=== PATIENT | female | born 1955 | race Caucasian/White ===

== ENCOUNTER 2018-06-08 07:10 | Emergency (ER) | payer MEDICARE, MEDICAID ==
[~2018-06-08] VITALS: Ht 160 cm; Wt 66.4 kg
[2018-06-08 07:38] LABS: BASOPHILS % (AUTO) 0.4 % (0-1); EOSINOPHILS # (AUTO) 0.1 X10'3 (0-0.9); EOSINOPHILS % (AUTO) 0.6 % (0-6); HEMATOCRIT 38.6 % (35.0-45.0); HEMOGLOBIN 12.9 g/dl (12.0-16.0); LYMPHOCYTES # (AUTO) 1.4 X10'3 (1.1-4.8); LYMPHOCYTES % (AUTO) 15.4 % (21-51); MEAN CORPUSCULAR HEMOGLOBIN 29.9 PG (27.0-31.0); MEAN CORPUSCULAR HGB CONC 33.3 g/dL (33.0-36.5); MEAN CORPUSCULAR VOLUME 89.7 FL (78-98); MEAN PLATELET VOLUME 8.1 FL (7.4-10.4); MONOCYTES # (AUTO) 0.7 X10'3 (0-0.9); MONOCYTES % (AUTO) 8.2 % (2-12); NEUTROPHILS # (AUTO) 6.6 X10'3 (1.8-7.7); NEUTROPHILS % (AUTO) 75.4 % (42-75); PLATELET COUNT 212 X10'3 (140-440); RED CELL DISTRIBUTION WIDTH 13.2 % (11.5-14.5); WHITE BLOOD COUNT 8.8 X10'3 (4.5-11.0)
[2018-06-08] MEDS ORDERED: normal saline 1000ML IV soln IVB ONE (07:40)
[2018-06-08] MEDS ORDERED: ondansetron/PF 4mg/2ml inj IV ONE (07:40)
[2018-06-08] MEDS: morphine 4 MG/ML inj SYRINge IV PRN ×3 (07:53→10:38)
[2018-06-08 07:55] LABS: CLARITY,URINE CLEAR (Clear); COLOR,URINE YELLOW (Yellow); GLUCOSE, URINE NEGATIVE (Neg); KETONES,URINE NEGATIVE (Neg); LEUKOCYTE ESTERASE ,URINE SMALL (Neg); NITRITES, URINE NEGATIVE (Neg); OCCULT BLOOD,URINE SMALL (Neg); PROTEIN,URINE NEGATIVE (Neg); UROBILINOGEN,URINE 0.2 E.U/dL (0.2-1.0)
[2018-06-08] MEDS ORDERED: ketorolac trometh. 30mg/ml inj. IV ONE (07:55)
[2018-06-08 08:00] LABS: ALANINE AMINOTRANSFERASE 21 U/L (12-78); ALBUMIN 3.3 G/DL (3.4-5.0); ALBUMIN/GLOBULIN RATIO 0.8 (1.1-1.5); ALKALINE PHOSPHATASE 75 IU/L (46-116); ANION GAP 6 (8-16); ASPARTATE AMINO TRANSFERASE 12 U/L (10-37); BILIRUBIN,TOTAL 0.5 MG/DL (0.1-1.0); BLOOD UREA NITROGEN 10 MG/DL (7-18); BUN/CREATININE RATIO 14.7 (6.6-38.0); CALCIUM 9.3 MG/DL (8.5-10.1); CHLORIDE 104 MMOL/L (99-107); CREATININE 0.68 MG/DL (0.40-0.90); GLUCOSE 95 MG/DL (70-104); LIPASE 106 U/L (73-393); POTASSIUM 3.1 MMOL/L (3.5-5.1); SODIUM 144 MMOL/L (135-145); TOTAL CARBON DIOXIDE 33.9 MMOL/L (24-32); TOTAL PROTEIN 7.2 G/DL (6.4-8.2); eGFR 88 ML/MIN
[2018-06-08 08:04] LABS: URINE HCG NEGATIVE (NEG)
[2018-06-08 08:05] LABS: UA COLLECTION TYPE CLN CATCH MIDSTREAM
[2018-06-08 08:06] LABS: BACTERIA,URINE FEW /HPF (Neg); MUCUS STRANDS FEW /LPF (Neg); RBC,URINE 0-2 /HPF (0-2); SQUAMOUS EPITHELIAL CELL,UR MODERATE /LPF (FEW)
[2018-06-08] MEDS ORDERED: morphine 4 MG/ML inj SYRINge IV ONE (09:20)
--- NOTE | 2018-06-08 10:04 | NUR ---
ultrasound in progress.
--- NOTE | 2018-06-08 10:25 | NUR ---
Spoke with Dr. Russ about potassium replacement for patient, he stated that he was awaiting US results before giving PO replacement
[2018-06-08] MEDS ORDERED: CIPR-230 PO (10:56)
[2018-06-08] MEDS ORDERED: TRAM50TA2 PO (10:56)
[2018-06-08] MEDS ORDERED: potassium Cl 20 mEq SR tablet PO STA (11:06)
[2018-06-08 11:26] VITALS: BP 136/71
== END 2018-06-08 11:28 | disposition home or self-care (01) ==
LOC: ER 07:11
DX: N39.0 Urinary tract infection, site not specified (principal); D25.9 Leiomyoma of uterus, unspecified; Z88.0 Allergy status to penicillin; Z88.2 Allergy status to sulfonamides; Z79.899 Other long term (current) drug therapy
CPT/HCPCS: 36415; 74176; 76830; 76856; 80053; 81001; 81025; 83690; 85025; 85610; 87088; 96374; 96375; 96376; 99284; J1885; J2270; J2405; J7030

== ENCOUNTER 2018-06-13 11:49 | Emergency (ER) | payer MEDICARE, MEDICAID ==
[~2018-06-13] VITALS: Ht 160 cm; Wt 66.4 kg
[~2018-06-13 11:49] MED LIST: CIPR-230 PO; TRAM50TA2 PO
[2018-06-13] MEDS ORDERED: normal saline 1000ML IV soln IVB ONE ×2 (12:05→12:15)
[2018-06-13] MEDS ORDERED: HYDROmorphone inj. 0.5 MG/0.5 ML DISP.SYRIN IV PRN (12:15)
[2018-06-13] MEDS ORDERED: LORazepam 2 mg/ml vial IV ONE (12:15)
[2018-06-13] MEDS ORDERED: metoclopramide 5 mg/ml inj IV ONE (12:15)
[2018-06-13] MEDS ORDERED: diphenhydrAMINE 50 mg/ml inj IV ONE (12:15)
[2018-06-13 12:58] LABS: BASOPHILS % (AUTO) 0.4 % (0-1); EOSINOPHILS % (AUTO) 0.7 % (0-6); HEMATOCRIT 37.3 % (35.0-45.0); HEMOGLOBIN 12.6 g/dl (12.0-16.0); LYMPHOCYTES # (AUTO) 1.6 X10'3 (1.1-4.8); LYMPHOCYTES % (AUTO) 23.4 % (21-51); MEAN CORPUSCULAR HEMOGLOBIN 30.1 PG (27.0-31.0); MEAN CORPUSCULAR HGB CONC 33.7 g/dL (33.0-36.5); MEAN CORPUSCULAR VOLUME 89.1 FL (78-98); MEAN PLATELET VOLUME 8.3 FL (7.4-10.4); MONOCYTES # (AUTO) 0.7 X10'3 (0-0.9); MONOCYTES % (AUTO) 9.9 % (2-12); NEUTROPHILS # (AUTO) 4.4 X10'3 (1.8-7.7); NEUTROPHILS % (AUTO) 65.6 % (42-75); PLATELET COUNT 245 X10'3 (140-440); RED BLOOD COUNT 4.18 X10'6 (4.20-5.60); RED CELL DISTRIBUTION WIDTH 13.1 % (11.5-14.5); WHITE BLOOD COUNT 6.8 X10'3 (4.5-11.0)
[2018-06-13 12:59] LABS: ALANINE AMINOTRANSFERASE 56 U/L (12-78); ALBUMIN 3.3 G/DL (3.4-5.0); ALBUMIN/GLOBULIN RATIO 0.8 (1.1-1.5); ALKALINE PHOSPHATASE 110 IU/L (46-116); ANION GAP 6 (8-16); ASPARTATE AMINO TRANSFERASE 19 U/L (10-37); BILIRUBIN,TOTAL 0.3 MG/DL (0.1-1.0); BLOOD UREA NITROGEN 12 MG/DL (7-18); BUN/CREATININE RATIO 19.7 (6.6-38.0); CALCIUM 9.8 MG/DL (8.5-10.1); CHLORIDE 104 MMOL/L (99-107); CREATININE 0.61 MG/DL (0.40-0.90); GLUCOSE 91 MG/DL (70-104); LIPASE 105 U/L (73-393); POTASSIUM 3.2 MMOL/L (3.5-5.1); SODIUM 143 MMOL/L (135-145); TOTAL PROTEIN 7.5 G/DL (6.4-8.2); eGFR > 90 ML/MIN
[2018-06-13 13:05] VITALS: BP 160/84
[2018-06-13] MEDS ORDERED: iohexol 300mg/ml 100ml inj. ONE (13:43)
[2018-06-13 14:00] LABS: CLARITY,URINE CLEAR (Clear); COLOR,URINE YELLOW (Yellow); GLUCOSE, URINE NEGATIVE (Neg); KETONES,URINE NEGATIVE (Neg); LEUKOCYTE ESTERASE ,URINE NEGATIVE (Neg); NITRITES, URINE NEGATIVE (Neg); OCCULT BLOOD,URINE TRACE-LYSED (Neg); PH,URINE 6.5 (4.8-8.0); PROTEIN,URINE NEGATIVE (Neg); UROBILINOGEN,URINE 0.2 E.U/dL (0.2-1.0)
[2018-06-13 14:02] LABS: UA COLLECTION TYPE CLN CATCH MIDSTREAM
[2018-06-13 14:16] LABS: BACTERIA,URINE FEW /HPF (Neg); MUCUS STRANDS FEW /LPF (Neg); RBC,URINE 0-2 /HPF (0-2); SQUAMOUS EPITHELIAL CELL,UR FEW /LPF (FEW); WBC,URINE 0-4 /HPF (0-4)
[2018-06-13] MEDS ORDERED: OXYC-145 PO (15:11)
[2018-06-15] MEDS ORDERED: CYCL-1 PO (15:34)
== END 2018-06-13 15:36 | disposition home or self-care (01) ==
LOC: ER 11:49
DX: R10.84 Generalized abdominal pain (principal); R10.11 Right upper quadrant pain; Z88.0 Allergy status to penicillin; Z88.2 Allergy status to sulfonamides
CPT/HCPCS: 36415; 74177; 76700; 80053; 81001; 83690; 84145; 85025; 96361; 96374; 96375; 99284; J1170; J1200; J2060; J2765; J7030; Q9967

== ENCOUNTER 2025-02-15 15:22 | Emergency (ER) | payer MEDICARE, MEDICAID ==
[~2025-02-15] VITALS: Ht 160 cm; Wt 77.7 kg
[~2025-02-15 15:22] MED LIST changes: -CIPR-230 PO; +CYCL-1 PO; +OXYC-145 PO; -TRAM50TA2 PO
--- NOTE | 2025-02-15 15:47 | ELECTROCARDIOGRAPH REPORT ---
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 John Rutledge Measurements Intervals [place] Rate: 75 P: 79 WI: 163 QRS: 58 QRSD: 77 T: 96 QT: 400 QTc: 447 Interpretive Statements Sinus rhythm Multiple premature complexes, vent & supraven Abnormal R-wave progression, early transition Nonspecific T abnormalities, lateral leads Electronically Signed On 02-17-2025 11:17:[address] John Rutledge Please click the below link to view image of tracing.
[2025-02-15 16:10] LABS: MEAN PLATELET VOLUME 8.3 FL (7.4-10.4); RED CELL DISTRIBUTION WIDTH 15.0 % (11.5-14.5)
[2025-02-15 16:30] LABS: CREATININE 1.13 MG/DL (0.40-0.90); PRO BRAIN NATRIURETIC PEPTIDE 506 PG/ML (0-125); TOTAL CARBON DIOXIDE 27.0 MMOL/L (24-32); eCRCL 40 ML/MIN; eGFR 48 ML/MIN
--- NOTE | 2025-02-15 16:38 | RADIOLOGY REPORT ---
CHEST RADIOGRAPH INDICATION: CP TECHNIQUE: Single frontal view of the chest was obtained COMPARISON: None FINDINGS: Lines and Tubes: None Lungs: Clear Pleura: No effusion. No pneumothorax. Cardiomediastinal contours: Unremarkable Bones: Unremarkable IMPRESSION: 1. No acute disease.
[2025-02-15 23:19] LABS: LEUKOCYTE ESTERASE ,URINE TRACE (Neg); NITRITES, URINE NEGATIVE (Neg); OCCULT BLOOD,URINE SMALL (Neg)
[2025-02-15 23:24] LABS: UA COLLECTION TYPE CLN CATCH MIDSTREAM
[2025-02-15 23:26] LABS: SQUAMOUS EPITHELIAL CELL,UR FEW /LPF (FEW); WBC CLUMPS,URINE FEW /HPF (NEGATIVE)
--- NOTE | 2025-02-16 01:24 | Physician Documentation ---
History of Present Illness ~ General Chief Complaint: Dizziness Stated Complaint: MULTIPLE MED COMPLAINTS Time Seen by MD: 00:40 Primary Medical Doctor: Dr Villafana Source: patient, family Mode of Arrival: POV History of Present Illness Initial Comments Patient is a 69-year-old female with past medical history of bladder cancer (in full remission), PE and anxiety presenting to the ED for evaluation of multiple medical complaints. Patient reports that she's has been generally unwell for these past five days. She has been dizzy when she sits up, stands up or ambula fer. Her abdominal hernia hurts when she pushes on it because she can feel air." She also has been experiencing 8/10 right-sided rib pain that is constant even when she is laying down. Alongside this, patient is complaining of abdominal pain and describes it as "indigestion", chills, fevers, sweats, weakness, dehydration, nausea, right ankle swelling, poor appetite and constipat ion. She denies any vomiting, chest pain, changes in urine color or odor, cough, shortness of breath. Patient has reports that she was recently put on a new medication a week ago but does not remember exactly what the name is. States that she usually gets evaluated for her symptoms at [facility] but wanted to come here today to try our ED. She is currently on anticoagulants and [place] for pain management. Medication Reconciliation Allergies: Coded Allergies: Penicillins (Unverified Allergy, Unknown, 02/15/25) Sulfa (Sulfonamide Antibiotics) (Unverified Allergy, Unknown, 02/15/25) Scheduled PRN Cyclobenzaprine* (Cyclobenzaprine*), 1 TABLET PO Q8H PRN for muscle spasms Oxycodone HCl/Acetaminophen (Percocet 5-325 mg Tablet), 1-2 TABLET PO Q4H PRN for pain Past Medical History Past Medical History: Pulmonary Embolism, *GI/HEPATOBILIARY*, Diverticulitis, *RENAL/*, *CANCER*, Anxiety Other Past Medical History: History of bladder cancer, she is in full remission. Past Surgical History: cancer surgery Alcohol Use: None Drug Use: none Lives with: Family Lives In: Home Review of Systems All Other Systems at this time: Reviewed and Negative ROS Constitutional: Positive for chills and subjective fever. HENT: Negative for sore throat and rhinorrhea. Eyes: Negative for pain and redness. Respiratory: Negative for cough and SOB. Cardiovascular: Negative for chest pain and palpitations. Gastrointestinal: Positive for abdominal pain where her hernia is. Negative for nausea, negative for vomiting. Genitourinary: Positive for constipation. Negative for dysuria and hematuria. Musculoskeletal: Positive for right-sided rib pain. Negative for acute back pain and acute neck pain. Skin: Negative for rash and pruritus. Neurological: Positive for dizziness. Negative for acute numbness or weakness. Physical Exam Physical Exam Vital Signs: Temperature: 97.8, Source: Oral, Heart Rate: 61, Respiratory Rate: 12, BP: 135/60, Pulse Oximetry: 99, Weight: 77.700 Oxygen Flow Rate: 0 Physical Exam General: Awake no acute distress. Verbal Head: No trauma Eyes: Nl lids Nl conjunctiva. No eye discharge ENT: Mucous membranes Nl. Lips Nl. No lesions Neck: Supple. No JVD. No visible mass Resp: Rate normal. No respiratory distress. No retractions. Normal air flow. No wheezes, rhonchi, or rales. Heart: Regular rhythm. No murmur. No rub Abdomen: Soft. Epigastric abdominal tenderness to palpation. No guarding. No rebound. Patient has suprapubic catheter. Musc/skeletal: No calf or popliteal tenderness. No edema Skin: No rash. No petechiae. Not diaphoretic Neuro: Alert, oriented. Normal speech Progress Results/Orders Results/Orders Orders - ANA GRIER MD Cta Chest Pe (02/16/25 06:41) Completed Orders - ANA GRIER MD Hydromorphone 1 Mg/Ml/Pf (Dilaudid Inj.) (02/16/25 03:15) Hydromorphone 1 Mg/Ml/Pf (Dilaudid Inj.) (02/16/25 03:20) Nitrofur Power/Nitrofuran Macr (Macrobid (02/16/25 04:55) Cta Chest Pe (02/16/25 06:41) Iohexol 350mg/Ml 100ml (Omnipaque 350mg/ (02/16/25 05:19) Medications Received in ER Medications (Trade) Dose Ordered Sig/Gita Route PRN Reason Start Time Stop Time Status Last Admin Dose Admin (Dilaudid inj.) 1 mg ONCE ONCE IV 02/16/25 03:15 02/16/25 03:16 DC 02/16/25 03:39 1 MG (Dilaudid inj.) 1 mg ONCE ONCE IM 02/16/25 03:20 02/16/25 03:21 DC 02/16/25 05:02 1 MG (MacroBID capsule) 100 mg ONCE ONCE PO 02/16/25 04:55 02/16/25 05:00 DC 02/16/25 05:57 100 MG Vital Signs 02/15/25 02/15/25 02/15/25 02/16/25 15:29 19:53 23:33 00:19 Temp 97.6 97.7 Pulse 62 60 67 Resp 16 15 11 B/P (MAP) 123/51 111/68 (82) 125/73 (90) Pulse Ox 98 98 99 O2 Flow Rate 0 0 02/16/25 02/16/25 02/16/25 02/16/25 00:27 01:48 03:39 05:02 Temp 97.8 97.8 Pulse 61 56 Resp 12 11 18 18 B/P (MAP) 135/60 (85) 122/65 (84) Pulse Ox 99 98 O2 Flow Rate 0 02/16/25 02/16/25 02/16/25 05:58 06:58 06:58 Pulse 60 Resp 14 18 18 B/P (MAP) 113/68 (83) Pulse Ox 95 Laboratory Tests Test 02/15/25 15:50 02/15/25 17:44 02/15/25 22:55 White Blood Count 8.2 Red Blood Count 4.37 Hemoglobin 13.5 Hematocrit 40.5 Mean Corpuscular Volume 92.7 Mean Corpuscular Hemoglobin 30.8 Mean Corpuscular Hemoglobin Concent 33.2 Red Cell Distribution Width 15.0 H Platelet Count 193 Mean Platelet Volume 8.3 Neutrophils (%) (Auto) 80.4 H Lymphocytes (%) (Auto) 10.8 L Monocytes (%) (Auto) 7.6 Eosinophils (%) (Auto) 0.9 Basophils (%) (Auto) 0.3 Neutrophils # (Auto) 6.6 Lymphocytes # (Auto) 0.9 L Monocytes # (Auto) 0.6 Eosinophils # (Auto) 0.1 Basophils # (Auto) 0.0 CBC Comment Sodium Level 139 Potassium Level 4.4 Chloride Level 105 Carbon Dioxide Level 27.0 Anion Gap 7 L Blood Urea Nitrogen 18 Creatinine 1.13 H Estimated GFR/1.73 m2 48 BUN/Creatinine Ratio 15.9 Glucose Level 136 H Calcium Level 9.1 Troponin I High Sensitivity 10 9 Pro-B-Type Natriuretic Peptide 506 H Albumin 3.5 Chemistry Comments Troponin I High Sens Percent Delta 10 Troponin I Hi Sens Absolute Change -1 Urine Specimen Description Cln catch midstream Urine Color Yellow Urine Clarity Clear Urine pH 6.5 Urine Specific [place] <=1.005 Urine Protein Negative Urine Glucose (UA) Negative Urine Ketones Negative Urine Occult Blood Small Urine Nitrite Negative Urine Bilirubin Negative Urine Urobilinogen 0.2 Urine Leukocyte Esterase Trace H Urine RBC 0-2 Urine WBC 5-10 H Urine WBC Clumps Few Urine Squamous Epithelial Cells Few Urine Bacteria 1+ Urine Culture Indicated Indicated Volume Urine Centrifuged 10 ml Urine Comment Microbiology Date/Time Source Procedure Growth Status 02/15/25 23:26 Urine Clean Catch Midstream Urine Culture - Preliminary Culture received. Resulted EKG/XRAY/CT/US/VASC/MRI Chest X-Ray : Interpreted By: radiologist Views: 1 VIEW Additional Comments CHEST RADIOGRAPH INDICATION: CP TECHNIQUE: Single frontal view of the chest was obtained COMPARISON: None FINDINGS: Lines and Tubes: None Lungs: Clear Pleura: No effusion. No pneumothorax. Cardiomediastinal contours: Unremarkable Bones: Unremarkable IMPRESSION: 1. No acute disease. Electronically Signed by:DAYDAY FU MD Date & Time: 02/15/25 1635 Medical Decision Making Additional information obtaine: N/A Findings MDM: Limited: (2 points from category 1 or one discussion with independent historian). Moderate: one of the following (3 points from category 1, or independent interpretations of tests performed by another physician/QHP: (ct,ecg,rad santhosh,rhythm strip,or comparing xray to prior), or discussion of tests or management with other professionals (not including [facility] ER doc/PA or family members.) High: (2 of 3 from : category 1 (3 points), independent interpretation of tests performed by another physician/QHP, and discussion of tests or management). Prior ER notes reviewed: Category 1: Number of Tests ordered or reviewed: [> three] Number of Independent Historians: [One] Non [facility] ER notes reviewed: 1. Triage notes 2. Nurse's notes 3. Category 2: I independently interpreted the: [] Category 3: Discussion with other professionals: [] Patient was given Dilaudid IM as she was a difficult IV access. Patient requested Dilaudid at this visit for pain control. CT PE negative for any acute findings EKG normal sinus rhythm no signs of ST elevation depression T-wave inversions or ischemia. UA shows leukocyte esterase and was given 100 and Macrobid as well as another 1 mg of Dilaudid IV. I placed in IV ultrasound line in the right AC. Findings otherwise negative at this time patient ambulating well. Return precautions discussed with patient and she should come back to the emergency department if symptoms change worsen or do not improve. Viral syndrome likely cause at this time given patient's symptoms and negative workup. Macrobid sent to patient pharmacy and patient is to follow-up with PCP as soon as possible. [employer] Problems related to: ( )Challenges with access to Primary Care or Outpatient Speciality Care ( )Psychosocial circumstances such as mental health issues ( )Social environment: such as violence or substance abuse ( )Housing and economic circumstances: such as homelessness ( )Employment and unemployment: such as recently loss of employment ( )Occupational exposures or injuries: ( )Accessing ED outside of normal PCP hours ( )Language barrier: ( )Primary support group, including family circumstances: Prescription Management: Rx strength meds given in ED: [] New Prescriptions: [] ( )I have reviewed the patient's medications and I do not recommend any changes at this time. (Applies only if checked) Comorbid conditions include but are not limited to: [] Testing or interventions considered: [] Differential includes but is not limited to: Viral syndrome, UTI, pneumonia, PE, ACS Differential Diagnosis See MDM Departure Disposition: ADMITTED INPATIENT Impression: Primary Impression: Dehydration Additional Impression Text Viral syndrome, UTI Condition: Improved Discharge Instructions: Pleurisy Referrals: NO PRIMARY CARE PROVIDER (PCP) Prescriptions Nitrofurantoin Monohyd/M-Cryst (Macrobid 100 mg Capsule) 100 Mg Capsule 100 CAP PO Q12H for 5 Days, #10 CAP 0 Refills Prov: ANA GRIER MD 02/16/25 Signature Scribe Signature: Scribed for Ana Grier MD by Amira Dillard . 02/16/25 03:00 Attestation: Scribed for Ana Grier MD by Ana Grier . 02/08/2025 0300 ANA GRIER MD Feb 16, 2025 01:23 AMIRA MEDINA Feb 16, 2025 03:14
[2025-02-16 01:48] VITALS: TEMP 97.8
[2025-02-16] MEDS: nitrofuran monohydrate/nitrofuran macrocrysal 100 MG (MacroBID) capsule PO ONE (05:57)
--- NOTE | 2025-02-16 07:24 | RADIOLOGY REPORT ---
CLINICAL HISTORY: Rule out PE previous history anticoagulated at this time however pleuritic TECHNIQUE: CT Angiogram of the chest was performed with intravenous contrast. 3D MIP reconstructed images were created and archived on the PACS system. This exam was performed according to our departmental dose optimization program. Up-to-date CT equipment and radiation dose reduction techniques are utilized as appropriate. WID: COMPARISON: DI CHEST,SINGLE VIEW on DOS: 02/15/25 FINDINGS: Lungs: clear. . Tracheobronchial tree: within normal limits . Cardiac: Left anterior descending coronary artery calcium. Left atrial chamber is dilated measuring 4.5 cm. Vascular: Main pulmonary artery is top-normal in size measuring 33 mm. No pulmonary emboli. Atherosclerotic calcifications of the thoracic aorta. Lymph nodes: unremarkable Thoracic inlet: unremarkable Bones: Bones are demineralized. Minimal degenerative changes. Upper Abdomen: unremarkable IMPRESSION: No pulmonary emboli Mildly enlarged pulmonary artery which can be seen with pulmonary hypertension. Left Atrial chamber dilation Coronary artery calcium
[2025-02-16 07:45] VITALS: BP 133/77; PULSE 67; RESP 16; O2SAT 96
[2025-02-16] MEDS ORDERED: NITR100C6 PO (07:50)
== END 2025-02-16 08:13 | disposition home or self-care (01) ==
LOC: ER 15:22
DX: N39.0 Urinary tract infection, site not specified (principal); B34.9 Viral infection, unspecified; E86.0 Dehydration; K59.00 Constipation, unspecified; F41.9 Anxiety disorder, unspecified; R06.2 Wheezing; Z79.01 Long term (current) use of anticoagulants; Z85.51 Personal history of malignant neoplasm of bladder; Z86.711 Personal history of pulmonary embolism; Z88.0 Allergy status to penicillin; Z88.2 Allergy status to sulfonamides
CPT/HCPCS: 36415; 71045; 71275; 80048; 81001; 83880; 84484; 85025; 87077; 87088; 87186; 93005; 96372; 96374; 99285; A4314; J1171; J7030; Q9967